=== PATIENT | female | born 1990 | race Caucasian/White ===

== ENCOUNTER → 2022-11-07 11:05 | Outpatient (BNVA) | payer OTHER, SELFPAY | PROVIDERS: PCP Physician Assistant; Visit Provider Internal Medicine Rheumatology | DX: M79.7 Fibromyalgia (principal); M51.36 Other intervertebral disc degeneration, lumbar region; M47.812 Spondylosis without myelopathy or radiculopathy, cervical region | CPT/HCPCS: 99202 ==

== ENCOUNTER 2023-04-08 11:06 | Outpatient (AMB) | payer OTHER, SELFPAY ==
--- NOTE | 2023-04-08 11:23 | A.OFFVIS_ITS ---
Intake Vital Signs 04/08/23 11:26 Height 5 ft 6 in Weight 207 lb BMI 33.4 BP 136/87 Blood Pressure Location Lt brachial Position Sitting Respiration 18 Pulse 89 Pulse Source Pulse Oximeter Pulse Oximetry (%) 100 Oxygen Delivery Method Room Air Intake Visit Reasons: Fibromyalgia/confirmed Allergies minocycline [Minocycline] Allergy (Severe, Verified 04/08/23 11:22) HIVES,RASH,SWELLING acetaminophen [Tylenol] Allergy (Unknown, Verified 04/08/23 11:22) Unknown amitriptyline Allergy (Unknown, Verified 04/08/23 11:22) Unknown cyclobenzaprine Allergy (Unknown, Verified 04/08/23 11:22) Unknown metformin [METFORMIN] Allergy (Unknown, Verified 04/08/23 11:) HIVES penicillin G Allergy (Unknown, Verified 04/08/23 11:) Unknown penicillin V Allergy (Unknown, Verified 04/08/23 11:) Unknown Penicillins [PCN] Allergy (Unknown, Verified 04/08/23 11:) ANAPHYLAXIS prednisone Allergy (Unknown, Verified 04/08/23 11:) Unknown pregabalin Allergy (Unknown, Verified 04/08/23 11:22) Unknown Sulfa (Sulfonamide Antibiotics) Allergy (Unknown, Verified 04/08/23 11:) Unknown sulfamethoxazole [Bactrim] Allergy (Unknown, Verified 04/08/23:) Unknown trimethoprim [Bactrim] Allergy (Unknown, Verified 04/08/23 11:) Unknown HPI Fibromyalgia/confirmed HPI Details Patient is a 32 years old female with history of fibromyalgia and chronic pain syndrome, presents today for initial evaluation of chronic neck and back pain. Denies any past or recent trauma, injury or falls. Reports pain started in 2011 when she woke up with intense low back pain and [place] [facility] [place] and was told imaging studies were normal. She reports lumbar spine MRI in 2019 showed epidural fluid build up. These MRI reports are not available today. Patient reports she was patient of Dr. Robledo for many years and received multiple courses of physical therapy, trigger point injections, epidural steroid injections, sacroiliac joint injections, Lidocaine infusions and opioid therapy. Patient notes significant multiple medications allergies, including prednisone but well tolerated cortisone injections. Patient presents with axial low back pain with pain radiating into her right lower extremity with numbness and tingling. She also has significant tenderness in the sacroiliac joint area with occasional radiation into right groin and hip area. Pain negatively affects her daily activities, functioning, sleep, mood, social interactions, and quality of life. She constantly in pain that increases her widespread body pain and fatigue levels. Pain is rated at 7/10. Denies any fever, chills, abdominal pain, weakness, foot drop, bladder or bowel dysfunction or saddle anesthesia. Location Widespread body pain, low back pain, neck pain Duration Chronic low back pain since 2011 Characteristics of symptom or complaint Pulsing, throbbing, shooting, stabbing, sharp, tingling, burning, radiating Aggravating or associated factors Movements, walking, prolonged sitting or standing, cold weather, stress Relieving factors Rest, sitting, side sleeping position, heat therapy Treatment PT, Lidocaine infusion, ZHEN, SIJ, trigger point injections-Dr. Robledo [facility] Medical History (Updated 04/08/23 @ 12:03 by QUINTEN Farias) Vitamin D deficiency Hx of sinus tachycardia Palpitations LTBI (latent tuberculosis infection) Insomnia GERD (gastroesophageal reflux disease) Heart murmur Allergic rhinitis Cyst of right kidney ADHD Chronic back pain Chronic fatigue Fibromyalgia Depression with anxiety Agoraphobia Difficulty controlling anger Surgical History (Updated 11/07/22 @ 11:20 by KALLI Dumont) History of ear surgery H/O arthroscopic knee surgery Hx of cholecystectomy Hx of colonoscopy Normal esophagogastroduodenoscopy (EGD) Family History (Updated 11/07/22 @ 11:19 by KALLI Dumont) Mother COPD (chronic obstructive pulmonary disease) Father Arthritis Family history of lupus erythematosus Social History (Updated 11/07/22 @ 11:18 by KALLI Dumont) Household Members: Spouse Alcohol intake: current Alcohol intake frequency: does not drink Patient Tobacco Use Status: Never used Tobacco Current occupational status: disabled Review of Systems Const All systems reviewed & are unremarkable except as noted in HPI and below Neuro Denies Sensory deficit (Neuro) Physical Exam Vital Signs: Last Vital Signs Pulse 89 04/08/23 11:26 Resp 18 04/08/23 11:26 BP 136/87 04/08/23 11:26 Pulse Ox 100 04/08/23 11:26 Oxygen Delivery Method Room Air 04/08/23 11:26 BMI result Body Mass Index 33.4 General: Appears afebrile. Alert and oriented. Mood and affect appropriate. Follows and participates in conversation appropriately. Respiratory effort is unlabored. No cough. Able to transition from sit to stand unassisted. Ambulates with bilaterally normal heel strike and toe off. Const General: cooperative, healthy appearing, comfortable, no acute distress, alert, awake and tired appearing Nutritional Appearance: obese Orientation/consciousness: patient oriented x3 Limitations: no limitations Back/Spine/Pelvis Other: Patient is able to walk and stand on heels and tip toes with no difficulties demonstrating good motor tone. No limping. Can flex forward to 60-65 degrees and extend to 5-10 degrees before experiencing lumbar pain. Demonstrates 5/5 streng th of quadriceps bilaterally as well as flexion/dorsiflexion of bilateral feet against resistance. 2+ pedal pulses bilaterally. Seated straight leg rise with dorsiflexion positive on the right in L5-S1. +2 patellar and +1 achilles reflexes bilaterally. Facet loading test positive bilaterally. Micheal sign positive bilaterally. Caden?s, Gaenslen, Pelvic compression and Stinchfield tests are positive on the right. No groin pain with I/E hip rotations. Valsalva maneuver negative. Multiple TTP points of upper and lower extremities. Cervical Spine: cervical ROM normal, cervical muscular tenderness, pain with cervical ROM and No Cervical spine tenderness Thoracic/Lumbar Spine: thoracic and lumbar spine normal to inspection, No Thoracic/lumbar spine scar(s), Lasegue's sign positive on the right and diffuse, pain with thoraco-lumbar ROM, paraspinal muscle tenderness on the right greater than left, thoraco-lumbar ROM limited, No thoracic spinal tenderness and lumbar spinal tenderness at L4 and at L5 Pelvis: buttock tenderness on the right and no sciatic notch tenderness Sacroiliac joints: bilaterally tender to palpation Neuro General: patient oriented x3 and CN's II-XI intact bilaterally Cognition (Neuro): normal cognition Gait exam (Neuro): Normal gait present Motor exam (neuro): 5/5 motor strength present throughout, no tremor noted and Motor abnormalities not present Sensory Exam: No Sensory deficit (Neuro) Results Reviewed Results Reviewed: No imaging reports are available for review today. Assessment & Plan Assessment & Plan (1) Fibromyalgia: Code(s): M79.7 - Fibromyalgia (2) Lumbar degenerative disc disease: Code(s): M51.36 - Other intervertebral disc degeneration, lumbar region (3) Cervical spine degeneration: Code(s): M47.812 - Spondylosis without myelopathy or radiculopathy, cervical region (4) Chronic pain syndrome: Code(s): G89.4 - Chronic pain syndrome (5) Low back pain radiating to right lower extremity: Code(s): M54.50 - Low back pain, unspecified; M79.604 - Pain in right leg (6) Sacroiliac joint pain: Code(s): M53.3 - Sacrococcygeal disorders, not elsewhere classified Plan 1. Lumbar spine and right hip imaging to assess degree of degenerative changes, any subluxation, listhesis, compression fractures or pars defects and MRI of the lumbar spine to assess for neural integrity and compression. Discussed diagnostic injections for potential PNS Sprint trial vs RFA procedures. Informational booklets provided. Allergy to prednisone noted, patient reports she previously tolerated ZHEN and cortisone injections well with Dr. Robledo whose records are not available. 2. Fibromyalgia-continue NSAIDs, muscle relaxant, daily physical activity as tolerated, sleep hygiene, adequate hydration, well balance diet and weight optimization, recommend CBT (Cognitive Behavioral Therapy) for sleep and coping with fibromyalgia with psychotherapist. Consider swimming, gentle stretching exercises, walking, cycling, and aerobic exercise which are the overall most effective treatments. Ar Child., Prabha Clarke, Waqas Musa, Mayda Alexander, Gustabo Jeter, & ?Ar Mosqueda (2017). Effectiveness of Therapeutic Exercise in Fibromyalgia Syndrome: A Systematic Review and Start-Analysis of Randomized Clinical Trials. [employer], 2017, [id number]. [email or web address] Patient will return to the clinic to discuss results of the MRI findings when it is done and consider interventional therapy as indicated. I have informed patient that our office does not offer opioid therapy. Will consider ITDD trial if no relief with stimulative or ablative treatments. All questions and concerns have been answered and patient agreed with the plan. Follow up for xray/MRI results and sooner if needed. Orders: Orders MR lumbar spine wo con 04/08/23 M51.36 - Other intervertebral disc degeneration, lumbar region, M54.50 - Low back pain, unspecified, M79.604 - Pain in right leg XR lumbar spine 4V min 04/08/23 M51.36 - Other intervertebral disc degeneration, lumbar region, M54.50 - Low back pain, unspecified, M79.604 - Pain in right leg XR hip RT w PEL1V 04/08/23 G89.4 - Chronic pain syndrome, M53.3 - Sacrococcygeal disorders, not elsewhere classified Coding Level of Care Code New Pt Level 4 (68719) Diagnoses Fibromyalgia M79.7 Lumbar degenerative disc disease M51.36 Cervical spine degeneration M47.812 Chronic pain syndrome G89.4 Low back pain radiating to right lower extremity M54.50; M79.604 Sacroiliac joint pain M53.3
[2023-04-08 11:26] VITALS: BP 136/87; PULSE 89; RESP 18; O2SAT 100; BMI 33.4
== END 2023-04-08 12:07 | disposition home or self-care (01) ==
PROVIDERS: PCP Physician Assistant; Visit Provider Nurse Practitioner Family
DX: M79.7 Fibromyalgia (principal); M51.36 Other intervertebral disc degeneration, lumbar region; M47.812 Spondylosis without myelopathy or radiculopathy, cervical region; G89.4 Chronic pain syndrome; M54.50 Low back pain, unspecified; M79.604 Pain in right leg; M53.3 Sacrococcygeal disorders, not elsewhere classified
CPT/HCPCS: 99204

== ENCOUNTER 2023-04-08 11:06 | Outpatient (REF) | payer OTHER, SELFPAY ==
--- NOTE | ~2023-04-08 | XR_ITS ---
EXAMINATION: XR HIP, RIGHT CLINICAL INFORMATION: Chronic pain COMPARISON: None available. TECHNIQUE: Two views of the right hip. Single view the pelvis. FINDINGS: No acute visible fracture or dislocation. Joint spaces and alignment are maintained. Soft tissues are unremarkable. T-shaped IUD in the pelvis. XR/XR hip RT w PEL1V IMPRESSION: 1. No acute visible fracture or dislocation. 2. T-shaped IUD in the pelvis.
--- NOTE | ~2023-04-08 | XR_ITS ---
EXAMINATION: XR LUMBOSACRAL SPINE WITH OBLIQUES CLINICAL INFORMATION: Low back pain COMPARISON: Right lumbar spine from 03/10/2018 TECHNIQUE: 5 views of the lumbar spine FINDINGS: 5 nonrib-bearing lumbar-type vertebral bodies. No acute visible fracture or dislocation. Mild lower lumbar spine facet arthropathy. Vertebral body heights and disc spaces are otherwise maintained. Posterior elements are intact. Paraspinal soft tissues are unremarkable. Visualized bowel gas is unremarkable. Surgical clips in the right upper and mid abdomen. XR/XR lumbar spine 4V min IMPRESSION: 1. No acute visible fracture or dislocation. 2. Mild lower lumbar spine facet arthropathy.
== END 2023-04-08 11:07 | disposition home or self-care (01) ==
LOC: HO.XRAY 11:06
PROVIDERS: PCP Physician Assistant; Visit Provider Nurse Practitioner Family
DX: M79.7 Fibromyalgia (principal); M51.36 Other intervertebral disc degeneration, lumbar region; M47.812 Spondylosis without myelopathy or radiculopathy, cervical region; G89.4 Chronic pain syndrome; M54.50 Low back pain, unspecified; M79.604 Pain in right leg; M53.3 Sacrococcygeal disorders, not elsewhere classified
CPT/HCPCS: 72110; 73502; 99202